=== PATIENT | female | born 1955 | race Caucasian/White ===

== ENCOUNTER 2023-03-01 14:08 | Outpatient (REF) | payer MEDICARE, SELFPAY ==
[2023-03-01 17:16] LABS: Vitamin B12 300 pg/mL (200-900)
[2023-03-02 08:53] LABS: Syphilis Screen Nonreactive (Nonreactive)
[2023-03-02 21:19] LABS: Lyme Abs Screen <0.90 index
== END 2023-03-01 14:09 | disposition home or self-care (01) ==
LOC: HO.LAB 14:08
PROVIDERS: Visit Provider Psychiatry & Neurology Neurology
DX: G30.9 Alzheimer's disease, unspecified (principal)
CPT/HCPCS: 36415; 82607; 86617; 86618; 86780